=== PATIENT | female | born 1975 | race Hispanic/Latino ===

== ENCOUNTER 2023-07-08 08:39 | Emergency (ER) | payer BC ==
[~2023-07-08] VITALS: Ht 162.6 cm; Wt 83.9 kg
[2023-07-08] MEDS ORDERED: IBUP-2070 PO (15:13)
[2023-07-08 15:30] VITALS: BP 156/92; PULSE 63; RESP 20; O2SAT 99
[2023-07-08] MEDS ORDERED: KETOROLAC 15MG/ML VIAL (15MG/ML) IM ONE (15:30)
== END 2023-07-08 15:31 | disposition home or self-care (01) ==
LOC: EDH 08:39
DX: S89.92XA Unspecified injury of left lower leg, initial encounter (principal); E78.00 Pure hypercholesterolemia, unspecified; I10 Essential (primary) hypertension; Z88.6 Allergy status to analgesic agent; X58.XXXA Exposure to other specified factors, initial encounter; Y93.67 Activity, basketball; Y92.89 Other specified places as the place of occurrence of the external cause; Y99.8 Other external cause status
CPT/HCPCS: 99284; 73700; 81025; 73562; 96372; J1885